=== PATIENT | female | born 1935 | race African-American/Black ===

== ENCOUNTER 2017-04-21 12:58 | Inpatient (IN) | payer MEDICARE, MEDICAID ==
[~2017-04-21] VITALS: Ht 160 cm; Wt 43.5 kg
[~2017-04-21 12:58] MED LIST: ACET-2178 PO; ALBU18HF2 IH; AMLO10TA4 PO; ASCO500C6 PO; ASPI-1159 PO; CARV6.2548 PO; CLON0.2T TD; FURO20TA4 PO; HYDR-4134 PO; LACT10SO6 PO; LOSA50TA20 PO; MOME13HF2 INH; NITR-87 PO; OMEP20CA10 PO; TOBR5DRO45 LEFTEYE
[2017-04-21] MEDS ORDERED: ONDANSETRON HCL 4MG/2ML VIAL IV STA (14:50)
[2017-04-21 15:21] LABS: BASOPHILS % 2.6 % (0.0-2.0); EOSINOPHILS % 1.1 % (0.0-5.0); HEMATOCRIT. 25.5 % (36.0-48.0); HEMOGLOBIN. 8.2 g/dL (12.0-16.0); LYMPHOCYTES % 40.7 % (20.0-50.0); MEAN CORPUSCULAR HEMOGLOBIN 28.5 pg (28.0-32.0); MEAN CORPUSCULAR VOLUME 88.8 fL (81.0-99.0); MEAN PLATELET VOLUME 7.6 fl (7.4-10.4); NEUTROPHILS % 50.6 % (40.0-76.0); PLATELET 434 x1000/uL (130-400); RED BLOOD CELL COUNT 2.87 mill/uL (4.2-5.4); RED CELL DISTRIBUTION WIDTH 19.6 % (11.6-14.6)
[2017-04-21 15:25] LABS: CHLORIDE 103 mEq/L (98-107)
[2017-04-21 15:27] LABS: INR 1.1; PROTHROMBIN TIME 11.6 sec (9.4-11.6)
[2017-04-21 15:31] LABS: CARBON DIOXIDE 32 mEq/L (21-32)
[2017-04-21 15:36] LABS: TROPONIN I 0.16 ng/mL (0.00-0.04)
[2017-04-21] MEDS ORDERED: POTASSIUM CHLORIDE 20MEQ TABLET SR PO ONE (15:45)
[2017-04-21] MEDS ORDERED: METOCLOPRAMIDE HCL 10MG/2ML VIAL IV ONE (17:30)
[2017-04-21 17:50] LABS: T4 FREE 1.39 ng/dL (0.76-1.46)
[2017-04-21 20:00] VITALS: BP 128/69
[2017-04-21] MEDS ORDERED: MAGNESIUM 2 G PREMIX 50 ML IV PRN (20:00)
[2017-04-21] MEDS ORDERED: BUDESONIDE 0.5MG/2ML NEB HHN SCH (20:00)
[2017-04-21] MEDS ORDERED: LACTULOSE 20G/30ML UDC PO PRN (20:00)
[2017-04-21] MEDS ORDERED: DIPHENHYDRAMINE 50MG/ML VIAL IV PRN (20:00)
[2017-04-21] MEDS ORDERED: CLONIDINE 0.1MG TABLET PO PRN (20:00)
[2017-04-21] MEDS ORDERED: IPRATROPIUM/ALBUTEROL 0.5-3(2.5)MG/3ML NEB INH PRN (20:00)
[2017-04-21] MEDS ORDERED: MAGNESIUM/ALUMINUM HYDROXIDE/SIMETHICONE 30ML UDC PO PRN (20:00)
[2017-04-21] MEDS ORDERED: ACETAMINOPHEN 325MG TABLET PO PRN (20:00)
[2017-04-21] MEDS ORDERED: POTASSIUM CHLORIDE 20MEQ/PACKET PO NR (20:29)
[2017-04-21] MEDS: HYDRALAZINE HCL 100MG TABLET PO SCH (21:48)
[2017-04-21] MEDS: CARVEDILOL 6.25 MG TABLET PO SCH (21:48)
[2017-04-22] VITALS: BP 111/52
[2017-04-22] MEDS ORDERED: POTA10TA15 PO (00:14)
[2017-04-22] MEDS ORDERED: NA P230E RC (00:14)
[2017-04-22] MEDS ORDERED: DEXT15DR5 LEFTEYE (00:14)
[2017-04-22] MEDS ORDERED: MULT-1146 PO (00:14)
[2017-04-22] MEDS ORDERED: CRAN450T10 PO (00:14)
[2017-04-22] MEDS ORDERED: DOCU-138 PO (00:14)
[2017-04-22] MEDS ORDERED: IPRA3AMP9 IH (00:14)
[2017-04-22] MEDS: IPRATROPIUM/ALBUTEROL 0.5-3(2.5)MG/3ML NEB HHN SCH ×6 (00:15→20:57)
[2017-04-22] MEDS: BUDESONIDE 0.5MG/2ML NEB HHN SCH ×3 (00:16→20:57)
[2017-04-22 04:00] VITALS: BP 145/82
[2017-04-22] MEDS: HYDRALAZINE HCL 100MG TABLET PO SCH ×3 (06:16→21:07)
[2017-04-22 07:17] LABS: TROPONIN I 0.14 ng/mL (0.00-0.04)
[2017-04-22 07:21] LABS: BASOPHILS % 0.9 % (0.0-2.0); EOSINOPHILS % 1.6 % (0.0-5.0); HEMATOCRIT. 24.2 % (36.0-48.0); HEMOGLOBIN. 7.8 g/dL (12.0-16.0); LYMPHOCYTES % 47.4 % (20.0-50.0); MEAN CORPUSCULAR HEMOGLOBIN 28.8 pg (28.0-32.0); MEAN CORPUSCULAR VOLUME 88.9 fL (81.0-99.0); MEAN PLATELET VOLUME 8.2 fl (7.4-10.4); MONOCYTES % 5.7 % (2.0-8.0); NEUTROPHILS % 44.4 % (40.0-76.0); PLATELET 387 x1000/uL (130-400); RED BLOOD CELL COUNT 2.72 mill/uL (4.2-5.4); RED CELL DISTRIBUTION WIDTH 19.8 % (11.6-14.6)
[2017-04-22 08:00] VITALS: BP 121/65
[2017-04-22] MEDS ORDERED: AMLODIPINE 10MG TABLET PO SCH (09:00)
[2017-04-22] MEDS: LOSARTAN POTASSIUM 50 MG TABLET PO SCH (09:00)
[2017-04-22] MEDS ORDERED: ASPIRIN 81MG EC TABLET PO SCH (09:00)
[2017-04-22] MEDS: ONDANSETRON HCL 4MG/2ML VIAL IV PRN (09:01)
[2017-04-22] MEDS: OMEPRAZOLE 20MG CAPSULE EXTENDED RELEASE PO SCH (09:01)
[2017-04-22] MEDS: CARVEDILOL 6.25 MG TABLET PO SCH ×2 (09:01→21:07)
[2017-04-22] MEDS: TOBRAMYCIN/DEXAMETH 0.1/0.3% OPHTH SUSP 2.5ML LEFTEYE SCH (09:03)
[2017-04-22] MEDS: AMLODIPINE 10MG TABLET PO SCH ×2 (11:30→21:07)
[2017-04-22 12:00] VITALS: BP 114/69
[2017-04-22] MEDS ORDERED: MAGNESIUM 2 G PREMIX 50 ML IV NR (14:00)
[2017-04-22 16:00] VITALS: BP 124/61
[2017-04-22 20:00] VITALS: BP 134/68
[2017-04-23] VITALS: BP 128/70
[2017-04-23] MEDS: IPRATROPIUM/ALBUTEROL 0.5-3(2.5)MG/3ML NEB HHN SCH ×6 (01:06→21:05)
[2017-04-23 04:00] VITALS: BP 145/68
[2017-04-23] MEDS: HYDRALAZINE HCL 100MG TABLET PO SCH ×3 (05:53→21:01)
[2017-04-23] MEDS: BUDESONIDE 0.5MG/2ML NEB HHN SCH ×2 (07:34→21:07)
[2017-04-23 08:00] VITALS: BP 151/70
[2017-04-23] MEDS: CARVEDILOL 6.25 MG TABLET PO SCH ×2 (09:15→21:00)
[2017-04-23] MEDS: OMEPRAZOLE 20MG CAPSULE EXTENDED RELEASE PO SCH (09:15)
[2017-04-23] MEDS: LOSARTAN POTASSIUM 50 MG TABLET PO SCH (09:15)
[2017-04-23] MEDS: ONDANSETRON HCL 4MG/2ML VIAL IV PRN (09:15)
[2017-04-23] MEDS: AMLODIPINE 10MG TABLET PO SCH ×2 (09:15→21:00)
[2017-04-23] MEDS: TOBRAMYCIN/DEXAMETH 0.1/0.3% OPHTH SUSP 2.5ML LEFTEYE SCH (09:16)
[2017-04-23 12:00] VITALS: BP 119/56
[2017-04-23 13:34] LABS: HEMATOCRIT 27.1 % (36.0-48.0); HEMOGLOBIN 8.8 g/dL (12.0-16.0); MEAN CORPUSCULAR VOLUME 89.6 fL (81.0-99.0); PLATELET 449 x1000/uL (130-400); RED BLOOD CELL COUNT 3.02 mill/uL (4.2-5.4); RED CELL DISTRIBUTION WIDTH 19.6 % (11.6-14.6)
[2017-04-23 16:00] VITALS: BP 117/62
[2017-04-23 20:00] VITALS: BP 139/76
[2017-04-24 00:05] VITALS: BP 148/81
[2017-04-24] MEDS: IPRATROPIUM/ALBUTEROL 0.5-3(2.5)MG/3ML NEB HHN SCH ×4 (01:47→11:43)
[2017-04-24 04:00] VITALS: BP 128/73
[2017-04-24] MEDS: HYDRALAZINE HCL 100MG TABLET PO SCH (06:04)
[2017-04-24 08:00] VITALS: BP 141/73
[2017-04-24] MEDS: BUDESONIDE 0.5MG/2ML NEB HHN SCH (08:00)
[2017-04-24] MEDS ORDERED: FAMOTIDINE 20MG TABLET PO SCH (09:00)
[2017-04-24] MEDS: TOBRAMYCIN/DEXAMETH 0.1/0.3% OPHTH SUSP 2.5ML LEFTEYE SCH (09:38)
[2017-04-24] MEDS: LOSARTAN POTASSIUM 50 MG TABLET PO SCH (09:38)
[2017-04-24] MEDS: AMLODIPINE 10MG TABLET PO SCH (09:38)
[2017-04-24] MEDS: CARVEDILOL 6.25 MG TABLET PO SCH (09:39)
[2017-04-24 12:00] VITALS: BP 136/135
[2017-04-24 12:21] VITALS: BP 136/60
== END 2017-04-24 13:40 | DRG 640 ==
LOC: ER 13:01 → 7WST 17:56 → ENRESERV 19:29
PROVIDERS: ADMIT Internal Medicine; ATTEND Internal Medicine
DX: E87.6 Hypokalemia (principal); E43 Unspecified severe protein-calorie malnutrition; F03.90 Unspecified dementia, unspecified severity, without behavioral disturbance, psychotic disturbance, mood disturbance, and anxiety; I11.9 Hypertensive heart disease without heart failure; I69.351 Hemiplegia and hemiparesis following cerebral infarction affecting right dominant side; J44.9 Chronic obstructive pulmonary disease, unspecified; D64.9 Anemia, unspecified; H54.42 Blindness, left eye, normal vision right eye; I25.10 Atherosclerotic heart disease of native coronary artery without angina pectoris; I73.9 Peripheral vascular disease, unspecified; R07.89 Other chest pain; K21.9 Gastro-esophageal reflux disease without esophagitis; Z79.82 Long term (current) use of aspirin; Z90.49 Acquired absence of other specified parts of digestive tract; Z88.5 Allergy status to narcotic agent; Z88.0 Allergy status to penicillin; Z79.899 Other long term (current) drug therapy; Z87.11 Personal history of peptic ulcer disease; Z87.891 Personal history of nicotine dependence; F41.9 Anxiety disorder, unspecified
CPT/HCPCS: 36415; 71010; 80051; 80053; 83605; 83735; 84439; 84443; 84481; 84484; 85025; 85027; 85610; 87040; 93005; 93970; 94640; 96374; 96375; 97162; 99285; A6261; J2405; J2765; J3475; J7050; J7620; J7626

== ENCOUNTER 2018-03-23 17:29 | Inpatient (IN) | payer MEDICARE, MEDICAID ==
[~2018-03-23] VITALS: Ht 162.6 cm; Wt 49.9 kg
[~2018-03-23 17:29] MED LIST changes: +CRAN450T10 PO; +DEXT15DR5 LEFTEYE; +DOCU-138 PO; +IPRA3AMP9 IH; +MULT-1146 PO; +NA P230E RC; +POTA10TA15 PO
[2018-03-23] MEDS ORDERED: MORPHINE SULFATE 4 MG/ML CPJ (NOT FOR IM USE) IV STA (19:41)
[2018-03-23] MEDS ORDERED: ONDANSETRON HCL 4MG/2ML VIAL IV STA (19:41)
[2018-03-23 20:05] LABS: BASOPHILS % 0.8 % (0.0-2.0); EOSINOPHILS % 3.8 % (0.0-5.0); HEMATOCRIT. 26.3 % (36.0-48.0); HEMOGLOBIN. 8.7 g/dL (12.0-16.0); LYMPHOCYTES % 55.1 % (20.0-50.0); MEAN CORPUSCULAR HEMOGLOBIN 31.2 pg (28.0-32.0); MEAN PLATELET VOLUME 8.7 fl (7.4-10.4); MONOCYTES % 4.1 % (2.0-8.0); NEUTROPHILS % 36.2 % (40.0-76.0); PLATELET 334 x1000/uL (130-400); RED BLOOD CELL COUNT 2.79 mill/uL (4.2-5.4); RED CELL DISTRIBUTION WIDTH 22.5 % (11.6-14.6)
[2018-03-23 20:07] LABS: CHLORIDE 111 mEq/L (98-107)
[2018-03-23 20:09] LABS: INR 1.1; PROTHROMBIN TIME 10.7 sec (9.1-11.1)
[2018-03-23 20:43] LABS: PLATELET ESTIMATE NORMAL
[2018-03-23 21:35] LABS: CLARITY URINE CLOUDY (CLEAR); COLOR URINE YELLOW (YELLOW); KETONES URINE NEGATIVE (NEGATIVE); LEUKOCYTE ESTERASE URINE NEGATIVE (NEGATIVE); NITRITE URINE NEGATIVE (NEGATIVE); OCCULT BLOOD URINE NEGATIVE (NEGATIVE); PROTEIN URINE NEGATIVE (NEGATIVE); UROBILINOGEN URINE 0.2 E.U./dL (0.2-1.0)
[2018-03-23] MEDS ORDERED: LEVOFLOXACIN 500MG PREMIX 100 ML IV ONE (23:15)
[2018-03-23] MEDS ORDERED: METRONIDAZOLE 500 MG PREMIX 100 ML IV ONE (23:15)
[2018-03-24] VITALS (7 sets, daily range): BP systolic 113–162; BP diastolic 49–78
[2018-03-24] MEDS ORDERED: DIPHENHYDRAMINE 50MG/ML VIAL IV PRN (00:30)
[2018-03-24] MEDS ORDERED: ONDANSETRON 4MG ODT PO PRN (00:30)
[2018-03-24] MEDS ORDERED: GUAIFENESIN 200MG/10ML SUGAR FREE UDC PO PRN (00:30)
[2018-03-24] MEDS ORDERED: IPRATROPIUM/ALBUTEROL 0.5-3(2.5)MG/3ML NEB INH PRN (00:30)
[2018-03-24] MEDS: IPRATROPIUM/ALBUTEROL 0.5-3(2.5)MG/3ML NEB HHN SCH ×5 (04:31→20:19)
[2018-03-24] MEDS: DEXT 5%/0.45% NACL 1000ML 1,000 ML IV SCH (09:18)
[2018-03-24] MEDS: OMEPRAZOLE 20MG CAPSULE EXTENDED RELEASE PO SCH (09:19)
[2018-03-24] MEDS: CLONIDINE 0.1MG TABLET PO PRN (09:19)
[2018-03-24] MEDS: CARVEDILOL 6.25 MG TABLET PO SCH ×2 (09:19→20:08)
[2018-03-24] MEDS: ACETAMINOPHEN 325MG TABLET PO PRN (12:18)
[2018-03-25] MEDS: IPRATROPIUM/ALBUTEROL 0.5-3(2.5)MG/3ML NEB HHN SCH ×6 (00:08→21:15)
[2018-03-25] MEDS: DEXT 5%/0.45% NACL 1000ML 1,000 ML IV SCH (00:46)
[2018-03-25 00:54] VITALS: BP 155/69
[2018-03-25] MEDS: CLONIDINE 0.1MG TABLET PO PRN (04:28)
[2018-03-25 04:35] VITALS: BP 168/72
[2018-03-25] MEDS: OMEPRAZOLE 20MG CAPSULE EXTENDED RELEASE PO SCH (06:16)
[2018-03-25] MEDS: CARVEDILOL 6.25 MG TABLET PO SCH ×2 (08:31→20:28)
[2018-03-25 10:35] LABS: BASOPHILS % 1.2 % (0.0-2.0); EOSINOPHILS % 5.4 % (0.0-5.0); HEMATOCRIT. 25.4 % (36.0-48.0); HEMOGLOBIN. 8.3 g/dL (12.0-16.0); LYMPHOCYTES % 56.4 % (20.0-50.0); MEAN CORPUSCULAR HEMOGLOBIN 30.8 pg (28.0-32.0); MEAN CORPUSCULAR VOLUME 93.7 fL (81.0-99.0); MEAN PLATELET VOLUME 8.6 fl (7.4-10.4); MONOCYTES % 4.4 % (2.0-8.0); NEUTROPHILS % 32.6 % (40.0-76.0); PLATELET 321 x1000/uL (130-400); RED BLOOD CELL COUNT 2.71 mill/uL (4.2-5.4); RED CELL DISTRIBUTION WIDTH 21.6 % (11.6-14.6)
[2018-03-25 11:09] LABS: CHLORIDE 108 mEq/L (98-107)
[2018-03-25 12:00] VITALS: BP 127/55
[2018-03-25 16:00] VITALS: BP 152/68
[2018-03-25] MEDS ORDERED: DEXT 5%/0.45% NACL 1000ML 1,000 ML IV SCH (19:15)
[2018-03-25 20:04] VITALS: BP 146/89
[2018-03-25] MEDS: ACETAMINOPHEN 325MG TABLET PO PRN (20:28)
[2018-03-25] MEDS: LACTULOSE 20G/30ML UDC PO SCH (22:04)
[2018-03-26] VITALS (7 sets, daily range): BP systolic 148–197; BP diastolic 60–129
[2018-03-26] MEDS: IPRATROPIUM/ALBUTEROL 0.5-3(2.5)MG/3ML NEB HHN SCH ×6 (01:20→20:37)
[2018-03-26] MEDS: LACTULOSE 20G/30ML UDC PO SCH ×3 (06:24→21:22)
[2018-03-26] MEDS: OMEPRAZOLE 20MG CAPSULE EXTENDED RELEASE PO SCH (06:24)
[2018-03-26] MEDS: DOCUSATE SODIUM 100MG CAPSULE PO SCH ×2 (08:19→17:21)
[2018-03-26] MEDS: CLONIDINE 0.1MG TABLET PO PRN (08:19)
[2018-03-26] MEDS: CARVEDILOL 6.25 MG TABLET PO SCH ×2 (08:20→21:22)
[2018-03-26] MEDS ORDERED: HYDRALAZINE HCL 100MG TABLET PO NR (14:51)
[2018-03-27] VITALS: BP 148/66
[2018-03-27] MEDS: IPRATROPIUM/ALBUTEROL 0.5-3(2.5)MG/3ML NEB HHN SCH ×4 (00:41→13:03)
[2018-03-27 04:00] VITALS: BP 150/60
[2018-03-27] MEDS: LACTULOSE 20G/30ML UDC PO SCH ×2 (06:50→13:12)
[2018-03-27] MEDS: OMEPRAZOLE 20MG CAPSULE EXTENDED RELEASE PO SCH (06:50)
[2018-03-27 08:00] VITALS: BP 178/85
[2018-03-27] MEDS: CARVEDILOL 6.25 MG TABLET PO SCH (08:27)
[2018-03-27] MEDS: CLONIDINE 0.1MG TABLET PO PRN (08:27)
[2018-03-27] MEDS: DOCUSATE SODIUM 100MG CAPSULE PO SCH (08:27)
[2018-03-27 12:00] VITALS: BP 130/79
[2018-03-27 12:15] VITALS: BP 130/79
[2018-03-27] MEDS: ACETAMINOPHEN 325MG TABLET PO PRN (13:12)
== END 2018-03-27 14:50 | DRG 391 ==
LOC: ER 17:38 → 6EST 23:02 → EDBEDREQ 23:04 → EDBEDREQSVC 23:04 → EDBEDREQTM 23:04 → ENRESERV 23:30 → 8WST 03-24 07:59
PROVIDERS: ADMIT Internal Medicine; ATTEND Internal Medicine
DX: K59.09 Other constipation (principal); E43 Unspecified severe protein-calorie malnutrition; Z68.1 Body mass index [BMI] 19.9 or less, adult; I50.9 Heart failure, unspecified; I11.0 Hypertensive heart disease with heart failure; K57.90 Diverticulosis of intestine, part unspecified, without perforation or abscess without bleeding; D64.9 Anemia, unspecified; I25.10 Atherosclerotic heart disease of native coronary artery without angina pectoris; M19.90 Unspecified osteoarthritis, unspecified site; J43.9 Emphysema, unspecified; Z82.49 Family history of ischemic heart disease and other diseases of the circulatory system; Z86.73 Personal history of transient ischemic attack (TIA), and cerebral infarction without residual deficits; Z88.6 Allergy status to analgesic agent; Z88.0 Allergy status to penicillin; Z79.82 Long term (current) use of aspirin; Z79.899 Other long term (current) drug therapy
CPT/HCPCS: 36415; 71045; 74176; 80048; 80053; 81003; 83605; 83690; 85025; 85610; 86850; 86900; 87040; 93005; 94640; 96365; 96367; 96375; 99285; J1956; J2270; J2405; J3490; J7620; Q0162; A4315

== ENCOUNTER 2018-08-18 13:16 | Inpatient (IN) | payer MEDICARE, MEDICAID ==
[~2018-08-18] VITALS: Ht 160 cm; Wt 55.8 kg
[2018-08-18] MEDS ORDERED: SODIUM CHLORIDE 0.9% 1,000 ML IV ONE (13:51)
[2018-08-18 15:18] LABS: BASOPHILS % 0.9 % (0.0-2.0); EOSINOPHILS % 2.3 % (0.0-5.0); HEMATOCRIT. 28.9 % (36.0-48.0); INR 1.2; LYMPHOCYTES % 23.6 % (20.0-50.0); MEAN CORPUSCULAR HEMOGLOBIN 28.6 pg (28.0-32.0); MEAN CORPUSCULAR VOLUME 91.2 fL (81.0-99.0); MEAN PLATELET VOLUME 8.3 fl (7.4-10.4); MONOCYTES % 3.6 % (2.0-8.0); NEUTROPHILS % 69.6 % (40.0-76.0); PLATELET 331 x1000/uL (130-400); PROTHROMBIN TIME 11.9 sec (9.1-11.1); RED BLOOD CELL COUNT 3.16 mill/uL (4.2-5.4); RED CELL DISTRIBUTION WIDTH 19.4 % (11.6-14.6)
[2018-08-18 15:19] LABS: CHLORIDE 109 mEq/L (98-107)
[2018-08-18] MEDS ORDERED: DEXT 5%/0.45% NACL 1000ML 1,000 ML IV SCH (18:06)
[2018-08-18] MEDS ORDERED: ENOXAPARIN 40MG/0.4ML SYR SUBCUT SCH (18:15)
[2018-08-18] MEDS ORDERED: DILTIAZEM HCL 125 MG in DEXT 5% WATER 100 ML IV ONE (18:15)
[2018-08-18 18:24] LABS: CLARITY URINE CLEAR (CLEAR); COLOR URINE YELLOW (YELLOW); KETONES URINE TRACE (NEGATIVE); LEUKOCYTE ESTERASE URINE TRACE (NEGATIVE); NITRITE URINE NEGATIVE (NEGATIVE); OCCULT BLOOD URINE NEGATIVE (NEGATIVE); PROTEIN URINE NEGATIVE (NEGATIVE)
[2018-08-18] MEDS ORDERED: ONDANSETRON HCL 4MG/2ML INJ IV PRN (19:30)
[2018-08-18] MEDS ORDERED: ACETAMINOPHEN 650MG SUPP PR PRN (19:30)
[2018-08-18] MEDS ORDERED: ENALAPRIL 2.5MG/2ML VIAL 2ML IV PRN (22:30)
[2018-08-18 23:30] VITALS: BP 148/72
[2018-08-19] VITALS: BP 173/78
[2018-08-19] MEDS: DEXT 5%/0.45% NACL 1000ML 1,000 ML IV SCH ×2 (00:47→13:14)
[2018-08-19] MEDS: ENALAPRIL IV PRN ×3 (00:54→18:54)
[2018-08-19] MEDS: DEXTROSE 5% IV PRN ×3 (00:54→18:54)
[2018-08-19] MEDS: WATER IV PRN ×3 (00:54→18:54)
[2018-08-19 04:00] VITALS: BP 152/75
[2018-08-19 07:17] LABS: CHLORIDE 111 mEq/L (98-107)
[2018-08-19 07:26] LABS: BASOPHILS % 1.1 % (0.0-2.0); EOSINOPHILS % 6.3 % (0.0-5.0); HEMATOCRIT. 26.7 % (36.0-48.0); HEMOGLOBIN. 8.6 g/dL (12.0-16.0); LYMPHOCYTES % 48.8 % (20.0-50.0); MEAN CORPUSCULAR HEMOGLOBIN 29.1 pg (28.0-32.0); MEAN CORPUSCULAR VOLUME 90.8 fL (81.0-99.0); MEAN PLATELET VOLUME 8.4 fl (7.4-10.4); MONOCYTES % 5.4 % (2.0-8.0); NEUTROPHILS % 38.4 % (40.0-76.0); PLATELET 289 x1000/uL (130-400); RED BLOOD CELL COUNT 2.94 mill/uL (4.2-5.4); RED CELL DISTRIBUTION WIDTH 19.2 % (11.6-14.6)
[2018-08-19 07:50] LABS: CREATINE KINASE 20 IU/L (26-192)
[2018-08-19 07:51] LABS: T4 FREE 1.71 ng/dL (0.76-1.46)
[2018-08-19 07:54] LABS: CREATINE KINASE MB FRACTION 1.1 ng/mL (0.5-3.6)
[2018-08-19 08:00] VITALS: BP 185/80
[2018-08-19] MEDS: ENOXAPARIN 40MG/0.4ML SYR SUBCUT SCH (08:42)
[2018-08-19] MEDS: PANTOPRAZOLE SODIUM 40 MG/VIAL IV SCH (08:48)
[2018-08-19 12:00] VITALS: BP 145/67
[2018-08-19 16:00] VITALS: BP_SYST 171; BP_SYST 185; BP_DIAS 90; BP_DIAS 91
[2018-08-19] MEDS ORDERED: POTASSIUM CHLORIDE INJ 40 MEQ in DEXT 5% WATER 500 ML IV NR (16:00)
[2018-08-19] MEDS: MEGESTROL ACETATE 400 MG/10 ML UDC PO SCH (17:03)
[2018-08-19 20:00] VITALS: BP 172/86
[2018-08-20] VITALS (7 sets, daily range): BP systolic 143–185; BP diastolic 84–105
[2018-08-20] MEDS: DEXT 5%/0.45% NACL 1000ML 1,000 ML IV SCH ×2 (02:46→17:36)
[2018-08-20] MEDS: MEGESTROL ACETATE 400 MG/10 ML UDC PO SCH ×2 (09:00→17:36)
[2018-08-20] MEDS: PANTOPRAZOLE SODIUM 40 MG/VIAL IV SCH (14:02)
[2018-08-20] MEDS: WATER IV PRN (14:02)
[2018-08-20] MEDS: DEXTROSE 5% IV PRN (14:02)
[2018-08-20] MEDS: ENOXAPARIN 40MG/0.4ML SYR SUBCUT SCH (14:02)
[2018-08-20] MEDS: ENALAPRIL IV PRN (14:02)
[2018-08-20 16:53] LABS: BASOPHILS % 1.2 % (0.0-2.0); EOSINOPHILS % 4.7 % (0.0-5.0); HEMATOCRIT. 30.3 % (36.0-48.0); HEMOGLOBIN. 9.8 g/dL (12.0-16.0); LYMPHOCYTES % 63.4 % (20.0-50.0); MEAN CORPUSCULAR HEMOGLOBIN 29.1 pg (28.0-32.0); MEAN CORPUSCULAR VOLUME 90.1 fL (81.0-99.0); MONOCYTES % 5.4 % (2.0-8.0); NEUTROPHILS % 25.3 % (40.0-76.0); PLATELET 321 x1000/uL (130-400); RED BLOOD CELL COUNT 3.36 mill/uL (4.2-5.4); RED CELL DISTRIBUTION WIDTH 18.9 % (11.6-14.6)
[2018-08-20 16:57] LABS: CHLORIDE 103 mEq/L (98-107)
[2018-08-20] MEDS: AMLODIPINE 10MG TABLET PO SCH (17:06)
[2018-08-20] MEDS: HYDRALAZINE HCL 25MG TABLET PO SCH ×2 (17:17→23:00)
[2018-08-20] MEDS ORDERED: CLONIDINE HCL 0.3MG/24HR PATCH TD SCH (18:30)
[2018-08-20] MEDS ORDERED: POTASSIUM CHLORIDE 20MEQ TABLET SR PO NR (19:00)
[2018-08-20] MEDS: HYDROMORPHONE HCL/PF 2MG/ML CPJ IV PRN (19:47)
[2018-08-20] MEDS: NITROGLYCERIN OINT 1GM/INCH UDPKT TD SCH (22:53)
[2018-08-20] MEDS ORDERED: MAGNESIUM 2 G PREMIX 50 ML IV NR (23:30)
[2018-08-21] MEDS: ENALAPRIL IV PRN (00:12)
[2018-08-21] MEDS: WATER IV PRN (00:12)
[2018-08-21] MEDS: DEXTROSE 5% IV PRN (00:12)
[2018-08-21 04:00] VITALS: BP 107/65
[2018-08-21] MEDS: NITROGLYCERIN OINT 1GM/INCH UDPKT TD SCH ×3 (05:16→21:18)
[2018-08-21] MEDS: HYDRALAZINE HCL 25MG TABLET PO SCH ×3 (05:16→21:19)
[2018-08-21] MEDS: DEXT 5%/0.45% NACL 1000ML 1,000 ML IV SCH ×2 (05:49→20:32)
[2018-08-21 08:00] VITALS: BP 148/71
[2018-08-21] MEDS: MEGESTROL ACETATE 400 MG/10 ML UDC PO SCH ×2 (09:57→18:03)
[2018-08-21] MEDS: AMLODIPINE 10MG TABLET PO SCH (09:58)
[2018-08-21] MEDS: PANTOPRAZOLE SODIUM 40 MG/VIAL IV SCH (09:58)
[2018-08-21] MEDS: ENOXAPARIN 40MG/0.4ML SYR SUBCUT SCH (09:58)
[2018-08-21 11:05] LABS: HEMATOCRIT 28.5 % (36.0-48.0); HEMOGLOBIN 9.1 g/dL (12.0-16.0); MEAN CORPUSCULAR HEMOGLOBIN 28.9 pg (28.0-32.0); MEAN CORPUSCULAR VOLUME 90.9 fL (81.0-99.0); PLATELET 270 x1000/uL (130-400); RED BLOOD CELL COUNT 3.14 mill/uL (4.2-5.4); RED CELL DISTRIBUTION WIDTH 18.8 % (11.6-14.6)
[2018-08-21 12:00] VITALS: BP 158/68
[2018-08-21 12:07] LABS: CHLORIDE 105 mEq/L (98-107)
[2018-08-21] MEDS: HYDROMORPHONE HCL/PF 2MG/ML CPJ IV PRN (13:56)
[2018-08-21 16:00] VITALS: BP 161/69
[2018-08-21] MEDS: ACETAMINOPHEN 325MG TABLET PO PRN ×2 (21:18→21:37)
[2018-08-22] VITALS: BP 158/75
[2018-08-22 04:00] VITALS: BP_SYST 180; BP_SYST 204; BP_DIAS 76; BP_DIAS 89
[2018-08-22] MEDS: DEXTROSE 5% IV PRN (04:45)
[2018-08-22] MEDS: ENALAPRIL IV PRN (04:45)
[2018-08-22] MEDS: WATER IV PRN (04:45)
[2018-08-22] MEDS: HYDRALAZINE HCL 25MG TABLET PO SCH ×3 (05:46→21:11)
[2018-08-22] MEDS: NITROGLYCERIN OINT 1GM/INCH UDPKT TD SCH ×3 (05:46→21:11)
[2018-08-22 08:00] VITALS: BP 171/77
[2018-08-22] MEDS: ENOXAPARIN 40MG/0.4ML SYR SUBCUT SCH (08:44)
[2018-08-22] MEDS: AMLODIPINE 10MG TABLET PO SCH (08:44)
[2018-08-22] MEDS: DEXT 5%/0.45% NACL 1000ML 1,000 ML IV SCH ×2 (08:51→21:11)
[2018-08-22] MEDS: MEGESTROL ACETATE 400 MG/10 ML UDC PO SCH ×2 (09:00→18:47)
[2018-08-22] MEDS ORDERED: FAMOTIDINE 20MG/2ML VIAL IV SCH (09:00)
[2018-08-22] MEDS: ACETAMINOPHEN 325MG TABLET PO PRN (18:46)
[2018-08-22 20:34] VITALS: BP 182/79
[2018-08-22 20:47] VITALS: BP 182/79
[2018-08-22] MEDS ORDERED: ATORVASTATIN CALCIUM 10MG TABLET PO SCH (21:00)
== END 2018-08-22 21:25 | DRG 640 ==
LOC: ER 13:16 → EDBEDREQ 16:38 → 6EST 16:43 → EDBEDREQ 16:47 → ENRESERV 19:01 → 6WST 08-20 21:25
PROVIDERS: ADMIT Hospitalist; ATTEND Hospitalist
PROC: 02HV33Z Insertion of Infusion Device into Superior Vena Cava, Percutaneous Approach (ICD-10-PCS; principal; 2018-08-20)
PROC: B518ZZA Fluoroscopy of Superior Vena Cava, Guidance (ICD-10-PCS; 2018-08-20)
PROC: B548ZZA Ultrasonography of Superior Vena Cava, Guidance (ICD-10-PCS; 2018-08-20)
DX: R62.7 Adult failure to thrive (principal); E43 Unspecified severe protein-calorie malnutrition; E86.0 Dehydration; E03.9 Hypothyroidism, unspecified; I11.0 Hypertensive heart disease with heart failure; I50.9 Heart failure, unspecified; M24.572 Contracture, left ankle; M24.571 Contracture, right ankle; K57.30 Diverticulosis of large intestine without perforation or abscess without bleeding; L89.150 Pressure ulcer of sacral region, unstageable; L89.220 Pressure ulcer of left hip, unstageable; E05.80 Other thyrotoxicosis without thyrotoxic crisis or storm; I48.0 Paroxysmal atrial fibrillation; L89.610 Pressure ulcer of right heel, unstageable; L89.510 Pressure ulcer of right ankle, unstageable; Z53.29 Procedure and treatment not carried out because of patient's decision for other reasons; L89.890 Pressure ulcer of other site, unstageable; I73.9 Peripheral vascular disease, unspecified; R74.8 Abnormal levels of other serum enzymes; M24.562 Contracture, left knee; M24.561 Contracture, right knee; Z90.49 Acquired absence of other specified parts of digestive tract; Z86.73 Personal history of transient ischemic attack (TIA), and cerebral infarction without residual deficits; Z68.21 Body mass index [BMI] 21.0-21.9, adult; Z88.0 Allergy status to penicillin; Z88.5 Allergy status to narcotic agent; Z79.82 Long term (current) use of aspirin; Z79.899 Other long term (current) drug therapy
CPT/HCPCS: 36415; 36569; 71045; 76937; 77001; 82550; 82553; 83735; 84134; 84439; 84443; 84484; 85027; 92610; 93306; 93970; 96360; 96361; 99285; A6261; C1725; C1893; C9113; J1170; J1650; J2405; J3475; J3480; J3490; J7030; J7050; J7060

== ENCOUNTER 2018-09-01 09:00 | Inpatient (IN) | payer MEDICARE, MEDICAID ==
[2018-09-01] VITALS (59 sets, daily range): BP systolic 107–206; BP diastolic 51–124
[~2018-09-01] VITALS: Ht 162.6 cm; Wt 44.5 kg
[2018-09-01] MEDS ORDERED: SODIUM CHLORIDE 0.9% 1,000 ML IV ONE ×2 (09:20)
[2018-09-01 09:56] LABS: BASOPHILS % 1.3 % (0.0-2.0); EOSINOPHILS % 2.7 % (0.0-5.0); HEMATOCRIT. 21.3 % (36.0-48.0); LYMPHOCYTES % 59.5 % (20.0-50.0); MEAN CORPUSCULAR HEMOGLOBIN 29.1 pg (28.0-32.0); MEAN PLATELET VOLUME 9.7 fl (7.4-10.4); MONOCYTES % 2.9 % (2.0-8.0); NEUTROPHILS % 33.6 % (40.0-76.0); PLATELET 339 x1000/uL (130-400); RED BLOOD CELL COUNT 2.29 mill/uL (4.2-5.4); RED CELL DISTRIBUTION WIDTH 19.7 % (11.6-14.6)
[2018-09-01 10:01] LABS: CHLORIDE 113 mEq/L (98-107); INR 1.1; PARTIAL THROMBOPLASTIN TIME 21.1 sec (23.4-31.0); PROTHROMBIN TIME 10.8 sec (9.1-11.1)
[2018-09-01 10:04] LABS: HEMOGLOBIN. 6.7 g/dL (12.0-16.0)
[2018-09-01] MEDS ORDERED: LIDOCAINE HCL 1% 20ML VIAL (Pyxis) INJ ONE (13:26)
[2018-09-01] MEDS ORDERED: ACETAMINOPHEN 325MG TABLET PO PRN (13:30)
[2018-09-01] MEDS ORDERED: GUAIFENESIN 200MG/10ML SUGAR FREE UDC PO PRN (13:30)
[2018-09-01] MEDS: DEXT 5%/0.45% NACL 1000ML 1,000 ML IV SCH (14:37)
[2018-09-01] MEDS: PANTOPRAZOLE SODIUM 40 MG/VIAL IV SCH (15:19)
[2018-09-01] MEDS: AMLODIPINE 10MG TABLET PO SCH (15:19)
[2018-09-01] MEDS: LOSARTAN POTASSIUM 25 MG TABLET PO SCH (15:19)
[2018-09-01] MEDS: HYDROMORPHONE HCL/PF 2MG/ML CPJ IV PRN (16:32)
[2018-09-01] MEDS: HYDRALAZINE 20MG/ML VIAL IV PRN (17:10)
[2018-09-01] MEDS: ONDANSETRON HCL 4MG/2ML INJ IV PRN (17:39)
[2018-09-01 19:33] LABS: HEMATOCRIT 32.2 % (36.0-48.0); HEMOGLOBIN 10.4 g/dL (12.0-16.0)
[2018-09-02] VITALS (85 sets, daily range): BP systolic 88–207; BP diastolic 41–116
[2018-09-02] MEDS: HYDROMORPHONE HCL/PF 2MG/ML CPJ IV PRN ×2 (00:53→22:34)
[2018-09-02] MEDS: DEXT 5%/0.45% NACL 1000ML 1,000 ML IV SCH ×2 (03:15→16:09)
[2018-09-02 05:33] LABS: BASOPHILS % 1.3 % (0.0-2.0); EOSINOPHILS % 3.2 % (0.0-5.0); HEMATOCRIT. 26.7 % (36.0-48.0); HEMOGLOBIN. 9.1 g/dL (12.0-16.0); LYMPHOCYTES % 44.4 % (20.0-50.0); MEAN CORPUSCULAR VOLUME 85.1 fL (81.0-99.0); MEAN PLATELET VOLUME 8.9 fl (7.4-10.4); MONOCYTES % 4.4 % (2.0-8.0); NEUTROPHILS % 46.7 % (40.0-76.0); PLATELET 283 x1000/uL (130-400); RED BLOOD CELL COUNT 3.13 mill/uL (4.2-5.4); RED CELL DISTRIBUTION WIDTH 18.2 % (11.6-14.6)
[2018-09-02 05:47] LABS: CHLORIDE 110 mEq/L (98-107)
[2018-09-02 13:23] LABS: BASOPHILS % 0.5 % (0.0-2.0); EOSINOPHILS % 3.7 % (0.0-5.0); HEMATOCRIT. 26.2 % (36.0-48.0); HEMOGLOBIN. 8.7 g/dL (12.0-16.0); LYMPHOCYTES % 44.6 % (20.0-50.0); MEAN CORPUSCULAR HEMOGLOBIN 28.5 pg (28.0-32.0); MEAN CORPUSCULAR VOLUME 85.8 fL (81.0-99.0); MEAN PLATELET VOLUME 8.8 fl (7.4-10.4); MONOCYTES % 3.6 % (2.0-8.0); NEUTROPHILS % 47.6 % (40.0-76.0); PLATELET 294 x1000/uL (130-400); RED BLOOD CELL COUNT 3.06 mill/uL (4.2-5.4)
[2018-09-02] MEDS ORDERED: SORBITOL 70% SOLN 30ML PO NR (20:00)
[2018-09-02 20:52] LABS: HEMATOCRIT 23.5 % (36.0-48.0)
[2018-09-02] MEDS: HYDRALAZINE 20MG/ML VIAL IV PRN (23:03)
[2018-09-02] MEDS: ONDANSETRON HCL 4MG/2ML INJ IV PRN (23:31)
[2018-09-03] VITALS (95 sets, daily range): BP systolic 119–196; BP diastolic 56–120
[2018-09-03 01:29] LABS: HEMATOCRIT 28.4 % (36.0-48.0); HEMOGLOBIN 9.5 g/dL (12.0-16.0)
[2018-09-03] MEDS: DEXT 5%/0.45% NACL 1000ML 1,000 ML IV SCH ×2 (06:24→18:06)
[2018-09-03] MEDS: HYDRALAZINE 20MG/ML VIAL IV PRN (06:31)
[2018-09-03 06:42] LABS: CHLORIDE 112 mEq/L (98-107)
[2018-09-03 06:43] LABS: HEMATOCRIT. 28.7 % (36.0-48.0); HEMOGLOBIN. 9.2 g/dL (12.0-16.0); MEAN CORPUSCULAR HEMOGLOBIN 28.6 pg (28.0-32.0); MEAN CORPUSCULAR VOLUME 89.6 fL (81.0-99.0); MEAN PLATELET VOLUME 8.9 fl (7.4-10.4); PLATELET 150 x1000/uL (130-400); RED CELL DISTRIBUTION WIDTH 18.6 % (11.6-14.6)
[2018-09-03] MEDS: SORBITOL 70% SOLN 30ML PO NR ×2 (06:56→06:58)
[2018-09-03 07:20] LABS: INR 1.1; PARTIAL THROMBOPLASTIN TIME 23.3 sec (23.4-31.0); PROTHROMBIN TIME 11.5 sec (9.1-11.1)
[2018-09-03] MEDS ORDERED: NA PHOS,M-B/NA PHOS,DI-BA ENEMA 118ML PR NR (08:00)
[2018-09-03] MEDS: PANTOPRAZOLE SODIUM 40 MG/VIAL IV SCH (08:24)
[2018-09-03] MEDS: LOSARTAN POTASSIUM 25 MG TABLET PO SCH (08:24)
[2018-09-03] MEDS: AMLODIPINE 10MG TABLET PO SCH (08:24)
[2018-09-03 12:19] LABS: PLATELET ESTIMATE NORMAL
[2018-09-03] MEDS ORDERED: POTASSIUM CHLORIDE INJ 40 MEQ in DEXT 5% WATER 250 ML IV NR (13:00)
[2018-09-03] MEDS ORDERED: FENTANYL CITRATE/PF 50MCG/ML 2ML VIAL ONE (13:43)
[2018-09-03] MEDS ORDERED: MIDAZOLAM HCL 5 MG/5 ML VIAL ONE (13:44)
[2018-09-03] MEDS ORDERED: MIDAZOLAM HCL 5 MG/5 ML VIAL IV PRN (14:24)
[2018-09-03] MEDS ORDERED: SODIUM CHLORIDE 0.9% 10ML VIAL ONE (15:36)
[2018-09-03] MEDS ORDERED: SIMETHICONE 40 MG/0.6 ML 30ML ONE (15:36)
[2018-09-03] MEDS ORDERED: SORBITOL 70% SOLN 30ML PO ONE (21:00)
[2018-09-03] MEDS: HYDROMORPHONE HCL/PF 2MG/ML CPJ IV PRN (22:09)
[2018-09-04] VITALS (89 sets, daily range): BP systolic 108–190; BP diastolic 54–117
[2018-09-04] MEDS: DEXT 5%/0.45% NACL 1000ML 1,000 ML IV SCH ×2 (00:27→21:32)
[2018-09-04] MEDS: HYDRALAZINE 20MG/ML VIAL IV PRN ×2 (02:39→14:53)
[2018-09-04] MEDS ORDERED: SORBITOL 70% SOLN 30ML PO NR (06:00)
[2018-09-04] MEDS ORDERED: SORBITOL 70% SOLN 30ML PO ONE (06:00)
[2018-09-04 06:12] LABS: CHLORIDE 115 mEq/L (98-107)
[2018-09-04] MEDS ORDERED: NA PHOS,M-B/NA PHOS,DI-BA ENEMA 118ML PR ONE (08:00)
[2018-09-04] MEDS: LOSARTAN POTASSIUM 25 MG TABLET PO SCH (08:27)
[2018-09-04] MEDS: PANTOPRAZOLE SODIUM 40 MG/VIAL IV SCH (08:27)
[2018-09-04] MEDS: AMLODIPINE 10MG TABLET PO SCH (08:28)
[2018-09-04 15:48] LABS: BASOPHILS % 1.7 % (0.0-2.0); EOSINOPHILS % 4.3 % (0.0-5.0); HEMATOCRIT. 29.5 % (36.0-48.0); HEMOGLOBIN. 9.5 g/dL (12.0-16.0); LYMPHOCYTES % 40.6 % (20.0-50.0); MEAN CORPUSCULAR HEMOGLOBIN 28.6 pg (28.0-32.0); MEAN CORPUSCULAR VOLUME 88.5 fL (81.0-99.0); MEAN PLATELET VOLUME 8.6 fl (7.4-10.4); MONOCYTES % 4.2 % (2.0-8.0); NEUTROPHILS % 49.2 % (40.0-76.0); PLATELET 381 x1000/uL (130-400); RED BLOOD CELL COUNT 3.33 mill/uL (4.2-5.4)
[2018-09-04] MEDS ORDERED: MIDAZOLAM HCL 5 MG/5 ML VIAL ONE (18:01)
[2018-09-04] MEDS ORDERED: FENTANYL CITRATE/PF 50MCG/ML 2ML VIAL ONE (18:01)
[2018-09-04] MEDS ORDERED: MIDAZOLAM HCL 5 MG/5 ML VIAL IV PRN (18:02)
[2018-09-05] MEDS: HYDROMORPHONE HCL/PF 2MG/ML CPJ IV PRN (02:08)
[2018-09-05 04:00] VITALS: BP 155/73
[2018-09-05] MEDS ORDERED: POTASSIUM CHLORIDE 20MEQ TABLET SR PO NR ×2 (07:30→08:43)
[2018-09-05 08:00] VITALS: BP 134/60
[2018-09-05 08:02] LABS: BASOPHILS % 1.7 % (0.0-2.0); EOSINOPHILS % 0.7 % (0.0-5.0); HEMATOCRIT. 26.1 % (36.0-48.0); HEMOGLOBIN. 8.7 g/dL (12.0-16.0); LYMPHOCYTES % 21.8 % (20.0-50.0); MEAN CORPUSCULAR VOLUME 87.4 fL (81.0-99.0); MEAN PLATELET VOLUME 8.2 fl (7.4-10.4); MONOCYTES % 3.3 % (2.0-8.0); NEUTROPHILS % 72.5 % (40.0-76.0); PLATELET 395 x1000/uL (130-400); RED BLOOD CELL COUNT 2.99 mill/uL (4.2-5.4); RED CELL DISTRIBUTION WIDTH 18.1 % (11.6-14.6)
[2018-09-05 08:05] LABS: CHLORIDE 114 mEq/L (98-107)
[2018-09-05] MEDS ORDERED: MAGNESIUM OXIDE 400MG TABLET PO SCH (08:42)
[2018-09-05] MEDS ORDERED: MAGNESIUM GLUCONATE 500MG TABLET PO SCH ×2 (09:00)
[2018-09-05] MEDS: PANTOPRAZOLE SODIUM 40 MG/VIAL IV SCH (09:10)
[2018-09-05] MEDS: AMLODIPINE 10MG TABLET PO SCH (09:10)
[2018-09-05] MEDS: LOSARTAN POTASSIUM 25 MG TABLET PO SCH (09:10)
[2018-09-05] MEDS: DEXT 5%/0.45% NACL 1000ML 1,000 ML IV SCH (10:49)
[2018-09-05 12:06] VITALS: BP 164/68
[2018-09-05] MEDS ORDERED: HYDRALAZINE 10 MG in DEXTROSE 5% WATER 50 ML IV PRN (15:15)
[2018-09-05 16:00] VITALS: BP 165/80
[2018-09-05 20:00] VITALS: BP 156/65
[2018-09-06] VITALS: BP 162/72
[2018-09-06 04:00] VITALS: BP 158/83
[2018-09-06] MEDS: DEXT 5%/0.45% NACL 1000ML 1,000 ML IV SCH ×2 (07:09→13:32)
[2018-09-06 08:00] VITALS: BP 155/90
[2018-09-06] MEDS: LOSARTAN POTASSIUM 25 MG TABLET PO SCH (08:29)
[2018-09-06] MEDS: AMLODIPINE 10MG TABLET PO SCH (08:29)
[2018-09-06] MEDS: PANTOPRAZOLE SODIUM 40 MG/VIAL IV SCH (08:29)
[2018-09-06 12:02] LABS: CHLORIDE 110 mEq/L (98-107)
[2018-09-06 12:06] LABS: BASOPHILS % 1.8 % (0.0-2.0); EOSINOPHILS % 1.8 % (0.0-5.0); LYMPHOCYTES % 39.6 % (20.0-50.0); MEAN CORPUSCULAR HEMOGLOBIN 28.7 pg (28.0-32.0); MEAN CORPUSCULAR VOLUME 87.5 fL (81.0-99.0); MEAN PLATELET VOLUME 8.3 fl (7.4-10.4); MONOCYTES % 3.5 % (2.0-8.0); NEUTROPHILS % 53.3 % (40.0-76.0); PLATELET 442 x1000/uL (130-400); RED BLOOD CELL COUNT 3.52 mill/uL (4.2-5.4); RED CELL DISTRIBUTION WIDTH 18.2 % (11.6-14.6)
[2018-09-06 12:10] LABS: HEMATOCRIT. 30.8 % (36.0-48.0); HEMOGLOBIN. 10.1 g/dL (12.0-16.0)
[2018-09-06 12:12] VITALS: BP 147/66
[2018-09-06] MEDS ORDERED: MAGNESIUM OXIDE 400MG TABLET PO NR (16:00)
[2018-09-06] MEDS ORDERED: POTASSIUM CHLORIDE 20MEQ TABLET SR PO NR (16:00)
[2018-09-06 16:10] VITALS: BP 150/77
[2018-09-06 17:41] VITALS: BP 133/67
== END 2018-09-06 19:30 | DRG 377 ==
LOC: ER 09:00 → EDBEDREQ 10:26 → EDBEDREQTM 10:26 → EDBEDREQ 10:27 → ENRESERV 11:18 → MICUSO 11:38 → 6EST 09-04 23:05
PROVIDERS: ADMIT Hospitalist; ATTEND Hospitalist
PROC: 02HV33Z Insertion of Infusion Device into Superior Vena Cava, Percutaneous Approach (ICD-10-PCS; principal; 2018-09-01)
PROC: B548ZZA Ultrasonography of Superior Vena Cava, Guidance (ICD-10-PCS; 2018-09-01)
PROC: 30233N1 Transfusion of Nonautologous Red Blood Cells into Peripheral Vein, Percutaneous Approach (ICD-10-PCS; 2018-09-01)
PROC: 0DB68ZX Excision of Stomach, Via Natural or Artificial Opening Endoscopic, Diagnostic (ICD-10-PCS; 2018-09-03)
PROC: 0DJD8ZZ Inspection of Lower Intestinal Tract, Via Natural or Artificial Opening Endoscopic (ICD-10-PCS; 2018-09-03)
PROC: 0DJD8ZZ Inspection of Lower Intestinal Tract, Via Natural or Artificial Opening Endoscopic (ICD-10-PCS; 2018-09-04)
DX: K57.31 Diverticulosis of large intestine without perforation or abscess with bleeding (principal); E43 Unspecified severe protein-calorie malnutrition; I48.91 Unspecified atrial fibrillation; I50.9 Heart failure, unspecified; L89.520 Pressure ulcer of left ankle, unstageable; L89.510 Pressure ulcer of right ankle, unstageable; I11.0 Hypertensive heart disease with heart failure; J44.9 Chronic obstructive pulmonary disease, unspecified; E87.6 Hypokalemia; K44.9 Diaphragmatic hernia without obstruction or gangrene; K29.60 Other gastritis without bleeding; M24.562 Contracture, left knee; L89.150 Pressure ulcer of sacral region, unstageable; M24.561 Contracture, right knee; E03.9 Hypothyroidism, unspecified; E83.42 Hypomagnesemia; I73.9 Peripheral vascular disease, unspecified; K31.7 Polyp of stomach and duodenum; K64.8 Other hemorrhoids; K22.5 Diverticulum of esophagus, acquired; Z86.010 Personal history of colon polyps; Z88.0 Allergy status to penicillin; Z88.5 Allergy status to narcotic agent; Z79.899 Other long term (current) drug therapy
CPT/HCPCS: 36415; 36569; 71045; 76937; 83605; 83735; 83880; 84134; 84484; 85014; 85018; 86850; 86900; 86920; 88305; 88312; 88313; 92610; 93005; 93970; 99152; 99291; A6261; C1725; C9113; J0360; J1170; J2250; J2405; J3010; J3480; J3490; J7030; J7050; J7060; P9016; A4315; G0500

== ENCOUNTER 2018-09-14 11:31 | Inpatient (IN) | payer MEDICARE, MEDICAID ==
[~2018-09-14] VITALS: Ht 165.1 cm; Wt 44.0 kg
[2018-09-14] MEDS ORDERED: SODIUM CHLORIDE 0.9% 500 ML IV ONE (13:17)
[2018-09-14 13:31] LABS: BASOPHILS % 1.4 % (0.0-2.0); HEMATOCRIT. 30.9 % (36.0-48.0); HEMOGLOBIN. 9.4 g/dL (12.0-16.0); LYMPHOCYTES % 45.4 % (20.0-50.0); MEAN CORPUSCULAR HEMOGLOBIN 28.1 pg (28.0-32.0); MEAN CORPUSCULAR VOLUME 91.9 fL (81.0-99.0); MEAN PLATELET VOLUME 9.7 fl (7.4-10.4); NEUTROPHILS % 48.2 % (40.0-76.0); PLATELET 431 x1000/uL (130-400); RED BLOOD CELL COUNT 3.36 mill/uL (4.2-5.4)
[2018-09-14 13:37] LABS: CHLORIDE 115 mEq/L (98-107)
[2018-09-14 13:41] LABS: ETHANOL BLOOD < 10 mg/dL
[2018-09-14 15:33] LABS: CLARITY URINE TURBID (CLEAR); COLOR URINE YELLOW (YELLOW); KETONES URINE 2+ (NEGATIVE); LEUKOCYTE ESTERASE URINE NEGATIVE (NEGATIVE); NITRITE URINE NEGATIVE (NEGATIVE); OCCULT BLOOD URINE NEGATIVE (NEGATIVE); PROTEIN URINE 1+ (NEGATIVE); SPECIFIC GRAVITY URINE 1.022 (1.005-1.030)
[2018-09-14 15:51] LABS: *AMPHETAMINES SCREEN URINE NEGATIVE (NEGATIVE); *BARBITURATES SCREEN URINE NEGATIVE (NEGATIVE); *BENZODIAZEPINES SCREEN URINE NEGATIVE (NEGATIVE); *COCAINE SCREEN URINE NEGATIVE (NEGATIVE); METHADONE URINE SCREEN NEGATIVE (NEGATIVE); OPIATES URINE SCREEN NEGATIVE (NEGATIVE); PHENCYCLIDINE URINE SCREEN NEGATIVE (NEGATIVE)
[2018-09-14 15:53] LABS: CANNABINOID URINE SCREEN NEGATIVE (NEGATIVE)
[2018-09-14] MEDS ORDERED: LACTATED RINGERS 1,000 ML IV ONE (16:37)
[2018-09-14] MEDS ORDERED: DEXT 5%/LACTATED RINGERS 1,000 ML IV ONE (16:38)
[2018-09-14] MEDS ORDERED: IPRATROPIUM/ALBUTEROL 0.5-3(2.5)MG/3ML NEB INH PRN (17:30)
[2018-09-14] MEDS ORDERED: GUAIFENESIN 200MG/10ML SUGAR FREE UDC PO PRN (17:30)
[2018-09-14] MEDS ORDERED: CLONIDINE 0.1MG TABLET PO PRN (17:30)
[2018-09-14] MEDS ORDERED: DIPHENHYDRAMINE 50MG/ML VIAL IV PRN (17:30)
[2018-09-14] MEDS ORDERED: ACETAMINOPHEN 325MG TABLET PO PRN (17:30)
[2018-09-14] MEDS ORDERED: ONDANSETRON HCL 4MG/2ML INJ IV PRN (17:30)
[2018-09-14] MEDS ORDERED: DEXTROSE 50% WATER 50ML SYRINGE IV ONE (17:45)
[2018-09-14] MEDS ORDERED: HYDRALAZINE 20MG/ML VIAL IV PRN (18:00)
[2018-09-14 23:00] VITALS: BP 177/77
[2018-09-14 23:44] VITALS: BP 171/75
[2018-09-15] MEDS: HYDRALAZINE 20MG/ML VIAL IV PRN ×3 (01:21→21:13)
[2018-09-15] MEDS: DEXT 5% WATER + KCL 20MEQ/L 1,000 ML IV SCH ×3 (02:03→21:00)
[2018-09-15 04:00] VITALS: BP 150/70
[2018-09-15 05:54] LABS: INR 1.2
[2018-09-15] MEDS: HYDRALAZINE HCL 25MG TABLET PO SCH ×3 (06:00→21:10)
[2018-09-15 06:36] LABS: CHLORIDE 115 mEq/L (98-107)
[2018-09-15 08:00] VITALS: BP 162/73
[2018-09-15] MEDS ORDERED: NON FORMULARY PATIENT HOME MED XX SCH (09:00)
[2018-09-15] MEDS: LISINOPRIL 10MG TABLET PO SCH (09:00)
[2018-09-15] MEDS ORDERED: KETOROLAC 15MG/ML VIAL IV NR (11:00)
[2018-09-15 12:00] VITALS: BP 165/83
[2018-09-15 16:00] VITALS: BP 166/80
[2018-09-15 20:00] VITALS: BP 163/79
[2018-09-15] MEDS ORDERED: POTASSIUM CHLORIDE INJ 40 MEQ in DEXT 5% WATER 250 ML IV NR (21:00)
[2018-09-16] VITALS: BP 183/91
[2018-09-16 04:00] VITALS: BP 178/83
[2018-09-16] MEDS: HYDRALAZINE 20MG/ML VIAL IV PRN (04:26)
[2018-09-16] MEDS: HYDRALAZINE HCL 25MG TABLET PO SCH ×3 (06:00→22:13)
[2018-09-16] MEDS: DEXT 5% WATER + KCL 20MEQ/L 1,000 ML IV SCH (06:14)
[2018-09-16 07:30] LABS: CHLORIDE 105 mEq/L (98-107)
[2018-09-16 07:38] LABS: PHOSPHORUS 1.5 mg/dL (2.5-4.9)
[2018-09-16 08:00] VITALS: BP 191/90
[2018-09-16 08:15] VITALS: BP 159/68
[2018-09-16] MEDS: LISINOPRIL 10MG TABLET PO SCH (09:14)
[2018-09-16] MEDS ORDERED: MAGNESIUM 2 G PREMIX 50 ML IV NR (10:00)
[2018-09-16] MEDS ORDERED: POTASSIUM PHOS,M-BASIC-D-BASIC 20 MMOL in DEXT 5% WATER 243.3333 ML IV NR (11:00)
[2018-09-16] MEDS: DRONABINOL 2.5MG CAPSULE PO SCH (11:32)
[2018-09-16 16:00] VITALS: BP 144/84
[2018-09-16 20:00] VITALS: BP 144/75
[2018-09-17] VITALS: BP 116/74
[2018-09-17] MEDS: DEXT 5% WATER + KCL 20MEQ/L 1,000 ML IV SCH ×3 (03:00→14:51)
[2018-09-17 04:00] VITALS: BP 171/81
[2018-09-17] MEDS: HYDRALAZINE 20MG/ML VIAL IV PRN (04:10)
[2018-09-17] MEDS: HYDRALAZINE HCL 25MG TABLET PO SCH ×3 (05:52→22:21)
[2018-09-17 06:10] LABS: PHOSPHORUS 2.8 mg/dL (2.5-4.9)
[2018-09-17 08:00] VITALS: BP 151/77
[2018-09-17] MEDS: DRONABINOL 2.5MG CAPSULE PO SCH (08:42)
[2018-09-17] MEDS: LISINOPRIL 10MG TABLET PO SCH (08:43)
[2018-09-17 12:00] VITALS: BP 125/59
[2018-09-17 16:00] VITALS: BP 134/62
[2018-09-17 17:08] LABS: BASOPHILS % 1.8 % (0.0-2.0); EOSINOPHILS % 3.9 % (0.0-5.0); HEMATOCRIT. 26.3 % (36.0-48.0); HEMOGLOBIN. 8.5 g/dL (12.0-16.0); LYMPHOCYTES % 44.1 % (20.0-50.0); MEAN CORPUSCULAR HEMOGLOBIN 28.4 pg (28.0-32.0); MEAN PLATELET VOLUME 8.2 fl (7.4-10.4); MONOCYTES % 8.7 % (2.0-8.0); NEUTROPHILS % 41.5 % (40.0-76.0); PLATELET 361 x1000/uL (130-400); RED BLOOD CELL COUNT 2.99 mill/uL (4.2-5.4); RED CELL DISTRIBUTION WIDTH 17.8 % (11.6-14.6)
[2018-09-17 17:12] LABS: MEAN CORPUSCULAR VOLUME 87.9 fL (81.0-99.0)
[2018-09-17] MEDS ORDERED: LEVOFLOXACIN 250MG PREMIX 50 ML IV SCH (17:30)
[2018-09-17 20:00] VITALS: BP 148/74
[2018-09-18] VITALS: BP 143/65
[2018-09-18] MEDS: HYDRALAZINE 20MG/ML VIAL IV PRN ×2 (03:44→16:10)
[2018-09-18] MEDS: DEXT 5% WATER + KCL 20MEQ/L 1,000 ML IV SCH (03:44)
[2018-09-18 04:00] VITALS: BP 188/78
[2018-09-18] MEDS: HYDRALAZINE HCL 25MG TABLET PO SCH ×2 (05:31→13:10)
[2018-09-18 07:54] LABS: CHLORIDE 104 mEq/L (98-107)
[2018-09-18 08:00] VITALS: BP 165/72
[2018-09-18 08:04] LABS: PHOSPHORUS 1.9 mg/dL (2.5-4.9)
[2018-09-18] MEDS: LISINOPRIL 10MG TABLET PO SCH (09:16)
[2018-09-18] MEDS: DRONABINOL 2.5MG CAPSULE PO SCH (09:16)
[2018-09-18] MEDS ORDERED: POTASSIUM PHOS,M-BASIC-D-BASIC 20 MMOL in DEXT 5% WATER 243.3333 ML IV SCH (11:30)
[2018-09-18 12:00] VITALS: BP 172/90
[2018-09-18] MEDS ORDERED: FUROSEMIDE 20MG/2ML VIAL IVP SCH (15:00)
[2018-09-18 16:00] VITALS: BP 170/80
[2018-09-18 17:21] VITALS: BP 134/64
[2018-09-18] MEDS ORDERED: LEVOFLOXACIN 250MG PREMIX 50 ML IV SCH (21:00)
== END 2018-09-18 19:15 | DRG 682 ==
LOC: ER 11:31 → 5WST 16:42 → EDBEDREQ 16:52 → ENRESERV 22:29
PROVIDERS: ADMIT Internal Medicine; ATTEND Internal Medicine
DX: N17.9 Acute kidney failure, unspecified (principal); E43 Unspecified severe protein-calorie malnutrition; E87.0 Hyperosmolality and hypernatremia; N39.0 Urinary tract infection, site not specified; Z68.1 Body mass index [BMI] 19.9 or less, adult; I50.42 Chronic combined systolic (congestive) and diastolic (congestive) heart failure; I69.351 Hemiplegia and hemiparesis following cerebral infarction affecting right dominant side; R62.7 Adult failure to thrive; E86.0 Dehydration; I48.0 Paroxysmal atrial fibrillation; J44.9 Chronic obstructive pulmonary disease, unspecified; K44.9 Diaphragmatic hernia without obstruction or gangrene; E03.9 Hypothyroidism, unspecified; F03.90 Unspecified dementia, unspecified severity, without behavioral disturbance, psychotic disturbance, mood disturbance, and anxiety; I27.20 Pulmonary hypertension, unspecified; I25.10 Atherosclerotic heart disease of native coronary artery without angina pectoris; I11.0 Hypertensive heart disease with heart failure; H54.62 Unqualified visual loss, left eye, normal vision right eye; I73.9 Peripheral vascular disease, unspecified; K31.7 Polyp of stomach and duodenum; K64.8 Other hemorrhoids; M19.90 Unspecified osteoarthritis, unspecified site; Z82.49 Family history of ischemic heart disease and other diseases of the circulatory system; Z88.5 Allergy status to narcotic agent; Z88.0 Allergy status to penicillin
CPT/HCPCS: 36415; 71045; 80048; 80305; 80307; 80329; 82962; 83605; 83735; 84100; 84134; 84145; 87077; 87186; 93970; 96365; 96375; 99291; J0360; J1885; J1940; J1956; J3475; J3480; J3490; J7030; J7040; J7050; J7060; Q0167